=== PATIENT | female | born 1995 | race Caucasian/White ===

== ENCOUNTER 2016-07-12 18:51 | Inpatient (IN) ==
[2016-07-12] MEDS ORDERED: Famotidine 20 MG/2 ML VIAL IVP PRN (19:43)
[2016-07-12] MEDS ORDERED: Naloxone 0.4 MG/ML INJ IVP PRN (19:43)
[2016-07-12] MEDS ORDERED: *HR* FentaNYL (PF) 100 MCG/2 ML VIAL IVP PRN (19:43)
[2016-07-12] MEDS ORDERED: *HR* Nalbuphine 20 MG/ML AMPUL IVP PRN (19:48)
--- NOTE | 2016-07-12 19:56 | OB/GYN History & Physical ---
Date of Encounter: 07/12/16 Time of Encounter: 19:49 Assessment and Plan (1) 40 weeks gestation of Current visit: Yes Status: Acute (2) Rupture of membranes Current visit: Yes Status: Acute Term SROM confirmed with nitrizine (PROM), FHT 145/+accels/-decels/Cat 1 [place]: CTX q2-4 moderate palp Admit for labor standard labor orders Clear liquids as desired, May have epidural and IV pain medication at pt. request GBS negative. History of Present Illness Chief complaint: Leaking fluid since 1430 HPI: Ms. Tsang is a 20 year old female 40+0 presents with leaking of fluid and cramping. Pt states she began leaking fluid about 1430 today. Clear without odor. Has had some slight cramping over the last couple hours. uncomplicated course with the exception of anxiety which she was taking zoloft, but discontinued earlier in . Pt denies feeling anxiety at this time, but is concerned about PP depression. Labs: A+, rubella immune, GBS negative, All serologies negative. Past Med Surg Social Fam HX - Past Medical History Source: patient Psychiatric history: anxiety, depression Obstetrical History - Pregnancies : 1 Para: 0 Term: 0 : 0 Ab's: 0 Livin Medications and Allergies Allergies No Known Allergies Allergy (Verified 07/12/16 19:49) Review of System OB All systems PM: reviewed and no additional remarkable complaints except as stated Exam - Constitutional Constitutional: well developed, well nourished, no acute distress - Neck Neck exam: full ROM - Lungs Respiratory exam: CTAB - Cardiovascular Cardiovascular exam: RRR, +S1, +S2 - Breasts Breast: bilateral: normal - Abdomen Abdomen: Present: bowel sounds normal, gravid, non tender - Extremities Extremities exam: normal inspection - Cervix Dilation: 3 (per RN) Station: 0 - Uterus Uterus exam: Present: normal size, normal contour Results All other labs normal. - VTE Reasons for not Prescribing Prophylaxis: Treatment not Indicated - Low risk for VTE
[2016-07-12 20:32] LABS: Basophils % 0.3 %; Eosinophils % 0.4 %; Hematocrit 36.6 % (35.3-44.9); Hemoglobin 12.5 g/dL (11.5-15.4); Immature Granulocytes % 0.4 % (0-4); Immature Platelets 18.5 % (1.1-6.1); Lymphocytes # 1.5 K/mcL (0.6-4.6); Mean Corpuscular HGB Conc 34.2 g/dL (31.6-35.5); Mean Corpuscular Hemoglobin 34.2 pg (28.0-33.3); Monocytes # 0.6 K/mcL (0.0-1.3); Monocytes % 5.7 %; Platelet Count 159 K/mcL (140-400); Red Blood Count 3.66 M/mcL (3.82-4.97); Red Cell Distribution Width 12.4 % (11.5-14.5); Segmented Neutrophils % 80.2 %
[2016-07-12] MEDS ORDERED: Ringers Solution, Lactated 1,000 ML IVC SCH (22:15)
[2016-07-12] MEDS ORDERED: Ringers Solution, Lactated 500 ML IVC ONE (22:17)
[2016-07-12] MEDS ORDERED: EPHEDrine 50 MG/ML VIAL IVP PRN (22:17)
[2016-07-12] MEDS ORDERED: *HR* FentaNYL (PF) 100 MCG/2 ML VIAL EP ONE (22:17)
[2016-07-12] MEDS ORDERED: *HR* Ropivacaine/PF 0.2% 10 ML AMPUL EP ONE (22:17)
--- NOTE | 2016-07-12 22:21 | Anesthesia Evaluation PreOp ---
Date of Encounter: 07/12/16 Time of Encounter: 20:20 - Past History Planned Operation: Labor Epidural Cardiac History: Denies any Significant Hx Pulmonary History: Denies Any Significant HX, Former smoker COMPLIANCE LEAD History: Denies Any Significant HX Other Medical History: Denies Any Significant HX Anesthesia History: No Prior Anesthetic Complications : Yes Alcohol Use: none Drug use: none Medications and Allergies Formula Tablet 1 tab PO DAILY 07/12/16 [History] Allergies No Known Allergies Allergy (Verified 07/12/16 19:49) - Meds/Allergy Pre-op Review Medications Reviewed: Yes Allergies Reviewed: Yes Beta Blockers on Current Med List: No Anesthesia Results - Labs 07/12/16 20:25 Anesthesia Exam Last Vital Signs Temp 98.1 F 07/12/16 19:51 Pulse 88 07/12/16 19:51 Resp 16 07/12/16 19:51 BP 129/73 07/12/16 19:51 Height: 1.73m Weight: 82.5kg NPO (# of Hours): >4hr solids Pain Scale: 5 Pain Scale Used: Numeric (1 - 10) - HEENT Pupil (Motor): Pupils equal Mallampati: II Teeth: Normal Oral Opening: Greater than 3 - COMPLIANCE LEAD LOC: Oriented COMPLIANCE LEAD Motor: Normal RUE, Normal LUE, Normal RLE, Normal LLE, Normal Face COMPLIANCE LEAD Sensory: Normal: RUE, LUE, RLE, LLE, Face - Cardiac Rhythm: Regular Murmur: None JVD: No Carotid Bruit: No - Pulmonary Breath Sounds: bilateral Clear Respiratory Effort: Symmetrical Anesthesia Assess/Plan ASA Score: 2 Modified [place] Scale for Level of Consciousness: Cooperative, oriented, and tranquil Anesthetic Plan: Regional Autologous Blood: Yes Monitoring Plan: Standard Monitors Recovery Plan: Other
[2016-07-12] MEDS ORDERED: *HR* FentaNYL (PF) 100 MCG/2 ML VIAL ONE (22:23)
[2016-07-12] MEDS ORDERED: *HR* Ropivacaine/PF 0.2% 10 ML AMPUL ONE (22:23)
[2016-07-12] MEDS ORDERED: Epidural Premix (fent/bupiv) 110 ML EP ONE (22:23)
[2016-07-12] MEDS ORDERED: Epidural Premix (fent/bupiv) 110 ML EP SCH (22:30)
[2016-07-13] MEDS ORDERED: Oxytocin 20 units/ LR 1000 mL 20 UNIT/1,000 ML BAG IVC ONE ×3 (03:43→08:10)
[2016-07-13] MEDS ORDERED: Lidocaine 1% 20 ML MDV ONE (05:05)
--- NOTE | 2016-07-13 05:46 | OB/GYN Procedure Note ---
Delivery - Delivery Date: 07/13/16 Provider: Margo Lizarraga (Naima for repair) Intrapartum events: none Delivery induction: none Delivery monitor: external FHT, external uterine Anesthesia: local, epidural Estimated Blood Loss: 400 - Repair Episiotomy: none Laceration Description: Periurethral, Perineal - 2nd Degree, Vaginal - Complications Delivery complications: none Delivery comments: Pt complete and after laboring down began directed bearing down efforts to of liveborn girl. Vertex presented KELSY and shoulders easily followed. Infant placed on maternal abdomen for tactile stimulation to cry. AGARS 8/. Placenta delivered spontaneously (raúl) 24 minutes after delivery. Fundus massaged until firm with pitocin per policy. Perineum with second degree lacerations including right labial and yesenia uretheral repaired under local. Dr Mcnamara called for assist with repair. After repair and packing removal bleeding noted. Manual inspection by Dr. Mcnamara for clots and membranes removal. EBL 400. Mother and infant recovering in stable condition. - Disposition Mom disposition: stable in LDR Electra disposition: stable in LDR
[2016-07-13] MEDS ORDERED: Benzocaine/Menthol 56 GM AEROSOL SPRAY TP PRN (08:10)
[2016-07-13] MEDS ORDERED: Oxytocin 20 units/ LR 1000 mL 20 UNIT/1,000 ML BAG IV SCH (08:10)
[2016-07-13] MEDS ORDERED: Lanolin 7 G OINT...G. TP PRN (08:10)
[2016-07-13] MEDS ORDERED: Acetaminophen 325 MG TABLET PO PRN (08:10)
[2016-07-13] MEDS ORDERED: *HR* HYDROcodone/Acet 5/325 mg TABLET PO PRN (08:10)
[2016-07-13] MEDS: Ibuprofen 600 MG TABLET PO PRN ×2 (09:59→20:33)
[2016-07-13] MEDS: Prenatal Vit/FA 1 EACH TABLET PO SCH (09:59)
[2016-07-14] MEDS: Prenatal Vit/FA 1 EACH TABLET PO SCH (08:26)
[2016-07-14] MEDS: Ibuprofen 600 MG TABLET PO PRN (08:26)
[2016-07-14 09:48] VITALS: BP 113/70
--- NOTE | 2016-07-14 10:04 | Discharge Summary ---
Date of Encounter: 07/14/16 Time of Encounter: 10:01 - Discharge Diagnosis (1) 40 weeks gestation of Priority: Secondary Status: Acute (2) Rupture of membranes Priority: Secondary Status: Acute (3) Vaginal delivery Priority: Primary Status: Acute Comments: Pt states feels well, just sore. +BM, desires discharge home - Discharge Medications Prescriptions: Ibuprofen [Motrin] 600 mg PO Q6HR PRN #60 tablet PRN Reason: Cramping Docusate [Colace] 100 mg PO BID #60 capsule Home Medications: Formula Tablet 1 tab PO DAILY 07/12/16 [History] Acetaminophen [Tylenol] 650 mg PO Q6HR PRN #0 tablet 07/14/16 [Rx] Benzocaine/Menthol [place] [Dermoplast [place]] 1 appl TP QID PRN #0 aerosol [Rx] Breast Pump [BREAST PUMP] 1 each .ROUTE AD #1 each 07/14/16 [Rx] Docusate [Colace] 100 mg PO BID #60 capsule 07/14/16 [Rx] Ibuprofen [Motrin] 600 mg PO Q6HR PRN #60 tablet 07/14/16 [Rx] Lanolin [Lansinoh] 1 appl TP Q4HR PRN #0 oint...g. 07/14/16 [Rx] Allergies/Adverse Reactions: Allergies No Known Allergies Allergy (Verified 07/12/16 19:49) Data Procedures and tests throughout hospitalization: Laboratory Tests 07/12/16 20:25 WBC 11.2 H RBC 3.66 L Hgb 12.5 Hct 36.6 MCV 100.0 MCH 34.2 H MCHC 34.2 RDW 12.4 Plt Count 159 MPV 13.0 H Immature Gran % 0.4 Seg Neutrophils % 80.2 Lymphocytes % 13.0 Monocytes % 5.7 Eosinophils % 0.4 Basophils % 0.3 Neutrophils # 9.0 H Lymphocytes # 1.5 Monocytes # 0.6 Eosinophils # 0.0 Basophils # 0.0 Immature Plt Fraction 18.5 H Date of admission: 07/12/16 18:51 Primary care physician: PCP NO Consults: 07/13/16 08:10 Consult to Integration Consultant [CONS] Routine Comment: Vaginal delivery, consult needed 07/13/16 13:18 Consult to Transportation Officer (W&C) [CONS] Routine Reason For Exam: Reason for SW Consult: first time mom Discharging clinician: Margo Lizarraga Anticipated date of discharge: 07/14/16 - Patient Status Disposition: Home, Self-Care Condition: Good Functional capacity at discharge: independent ambulation Overall status at discharge: patient is back to baseline - Discharge Instructions Follow Up With: Margo Lizarraga, CNM [Advanced Practice Nurse] - (August 13, 2016 @ 11:45 am) - Diet and Activity Activity: resume usual activities as tolerated Diet: regular diet Hospital Course Reason for admission: active labor Delivery: Episiotomy: none Laceration: 2nd degree Other procedures: none complications: phlebitis Discharge diagnosis: IUP at term delivered baby: female Hospital course: Delivery - Delivery Date: 07/13/16 Provider: Margo Lizarraga (Naima for repair) Intrapartum events: none Delivery induction: none Delivery monitor: external FHT, external uterine Anesthesia: local, epidural Estimated Blood Loss: 400 - Repair Episiotomy: none Laceration Description: Periurethral, Perineal - 2nd Degree, Vaginal - Complications Delivery complications: none Delivery comments: Pt complete and after laboring down began directed bearing down efforts to of liveborn girl. Vertex presented KELSY and shoulders easily followed. Infant placed on maternal abdomen for tactile stimulation to cry. AGARS 8/9. Placenta delivered spontaneously ([place]) 24 minutes after delivery. Fundus massaged until firm with pitocin per policy. Perineum with second degree lacerations including right labial and yesenia uretheral repaired under local. Dr Mcnaamra called for assist with repair. After repair and packing removal bleeding noted. Manual inspection by Dr. Mcnamara for clots and membranes removal. EBL 400. Mother and infant recovering in stable condition. - Disposition Mom disposition: stable in and appropriate for discharge Time Attestation: Total time spent providing and/or coordinating discharge services: Time Spent: Less than 30 minutes Exam - Constitutional Vitals: Temp Pulse Resp BP Pulse Ox 98.4 F 91 16 113/70 99 07/14/16 09:46 07/14/16 09:46 07/14/16 09:46 07/14/16 09:46 07/13/16 21:20 General appearance IM: A&O X 3, no acute distress - Respiratory Respiratory exam: Present: CTAB - Cardiovascular Cardiovascular exam IM: Present: RRR, +S1, +S2 - GI/Abdominal GI/Abdominal exam IM: normal bowel sounds, soft - Uterine Tone: Firm - Extremities Exam Extremities exam IM: Present: normal capillary refill, normal inspection - Neurological Exam Neurological exam: normal gait, oriented X3 - Psychiatric Additional comments: reports good mood concerned about . Will refer to .
== END 2016-07-14 17:00 | disposition home or self-care (01) | DRG 775 ==
LOC: 1NENULAB → OBSVTOIN 18:51 → 1NENULAB 22:07 → 1NENUOBS 07-13 08:09
PROVIDERS: ADMIT Obstetrics & Gynecology; ATTEND Obstetrics & Gynecology

== ENCOUNTER 2016-07-24 21:23 | Observation (INO) ==
[2016-07-24] MEDS ORDERED: Lidocaine 1% 20 ML MDV ONE (22:57)
[2016-07-24] MEDS ORDERED: Ondansetron 4 MG/2 ML VIAL IVP PRN (23:03)
[2016-07-24] MEDS ORDERED: Naloxone 0.4 MG/ML INJ IVP PRN (23:03)
[2016-07-24] MEDS ORDERED: SODIUM CHLORIDE 0.9% IVPB ONE (23:06)
[2016-07-24] MEDS ORDERED: GENTAMICIN IVPB ONE (23:06)
[2016-07-24] MEDS ORDERED: *HR* HYDROcodone/Acet 5/325 mg TABLET PO PRN (23:07)
[2016-07-24] MEDS ORDERED: MetroNIDAZOLE 500 MG/100 ML 500 MG/100 ML BAG IVPB ONE (23:08)
[2016-07-24] MEDS ORDERED: Ringers Solution, Lactated 1,000 ML IVC SCH (23:15)
--- NOTE | 2016-07-25 00:15 | OB/GYN History & Physical ---
Date of Encounter: 07/25/16 Time of Encounter: 23:30 Assessment and Plan (1) Wound dehiscence in puerperium, perineal Current visit: Yes Status: Acute Cultures collected prior to repair (2) Breast feeding status of mother Current visit: Yes Status: Acute support prn (3) Infection of perineal wound following delivery Current visit: Yes Status: Acute Patient was given IV ancef prior to arrival at [place] Patient was given Flagy IV piggyback after wound cultures were collected. History of Present Illness Chief complaint: vaginal infection with dehiscence of vaginal repair HPI: Ms. Tsang is a 20 year old female that is 11 days presents to unit from [facility]. [facility] had completed lab work WBC was 7.9, Hgb 12, Vital signs were stable and patient was afebrile. Patient was given 1 gram of Ancef and 30mg of Toradol for pain. Patient reports low grade fevers for past 5 days. Patient states she was taking motrin but the pain in her vagina got worse today and she noticed a foul odor with discharge. Patient is breast feeding female infant. Denies any urinary symptoms or flu symptoms. Wound cultures were collected. Patient had an IV in her right AC. Lactated ringer were started at 125cc/hour and Flagyl 500mg was given IV piggyback. Patient was given PO [place] for pain management. Past Med Surg Social Fam HX - Past Medical History Source: patient Medical history: no medical history Psychiatric history: anxiety, depression - Past Surgical History Surgical History: no surgical history - Social History Smoking Status: Former smoker Smokeless Tobacco Status: No Alcohol use: none Drug use: none Occupational status: employed Current living situation: Home - Independent Activity Level: Independent ambulation Recent Out of Country Travel Within the Last 8 Weeks: No Exposure or Possible Exposure to Illness During Travel: No - Family History Father Living Status: Still Living Hx Family Cardiac Disorders: No Hx Family Respiratory Disorders: No Hx Family Cancer: No Hx Family GI Disorders: No Hx Family Endocrine Disorder: No Hx Family Neuromuscular Disorders: No Hx Family Neurologic Disorders: No Hx Family HEENT Disorders: No Hx Family Autoimmune Disorders: No Obstetrical History - Pregnancies : 1 Para: 1 Term: 1 : 0 Ab's: 0 Livin Medications and Allergies Formula Tablet 1 tab PO DAILY 07/12/16 [History] Acetaminophen [Tylenol] 650 mg PO Q6HR PRN #0 tablet 07/14/16 [Rx] Benzocaine/Menthol [place] [Dermoplast [place]] 1 appl TP QID PRN #0 aerosol [Rx] Breast Pump [BREAST PUMP] 1 each .ROUTE AD #1 each 07/14/16 [Rx] Docusate [Colace] 100 mg PO BID #60 capsule 07/14/16 [Rx] Ibuprofen [Motrin] 600 mg PO Q6HR PRN #60 tablet 07/14/16 [Rx] Lanolin [Lansinoh] 1 appl TP Q4HR PRN #0 oint...g. 07/14/16 [Rx] Allergies No Known Allergies Allergy (Verified 07/12/16 19:49) Review of System OB - Constitutional Constitutional ROS IM: fever(s) (reports fevers of 100.0), no chills, no fatigue , no headache(s) - Breasts Breasts: other (Patient is breast feeding), no pain - Cardiovascular Cardiovascular: no chest pain, no dyspnea, no edema, no palpitations, no pedal edema, no syncope - Respiratory Respiratory: no cough, no dyspnea - Gastrointestinal Gastrointestinal: no abdominal pain, no constipation, no cramping, no diarrhea, no heartburn, no vomiting - Genitourinary Genitourinary: vaginal discharge, vaginal odor, no abnormal vaginal bleeding, no difficulty urinating, no dysuria, no flank pain, no urinary frequency, no vaginal pruritis Exam - Constitutional Constitutional: well developed, well nourished, average body habitus - HEENT HEENT: Normocephaly, Mucus Membranes Moist - Neck Neck exam: supple - Lungs Respiratory exam: CTAB - Cardiovascular Cardiovascular exam: RRR, +S1, +S2 - Abdomen Abdomen: Present: bowel sounds normal, non tender - Extremities Extremities exam: full ROM, normal capillary refill, normal inspection Deep Tendon Reflex Grade: 2+ Normal - Vagina Vagina: Present: discharge (purulent) - Comments Comments: When examining the perineum and vaginal lacerations, suture appears to be loose and handing out of the vagina. The perineum was prepped with betadine and old suture was removed. 1% lidocaine was used to anesthetize for repair. A right periurethral laceration was repaired with 4-0 vicryl. A second degree vaginal laceration was repaired with 3-0 vicryl. Patient tolerated well. Pericare was provided and an ice pack was placed on perineum. Results All other labs normal. - VTE Reasons for not Prescribing Prophylaxis: Treatment not Indicated - Low risk for VTE
[2016-07-25] MEDS ORDERED: Benzocaine/Menthol 56 GM AEROSOL SPRAY TP PRN ×2 (00:38→01:38)
[2016-07-25] MEDS ORDERED: *HR* HYDROmorphone (PF) 1 MG/ML SYRINGE IVP ONE (00:50)
[2016-07-25] MEDS ORDERED: Ibuprofen 600 MG TABLET PO PRN (01:38)
[2016-07-25] MEDS ORDERED: Naloxone 0.4 MG/ML INJ IVP PRN (01:38)
[2016-07-25] MEDS ORDERED: Ringers Solution, Lactated 1,000 ML IVC SCH (01:38)
[2016-07-25] MEDS ORDERED: *HR* HYDROcodone/Acet 5/325 mg TABLET PO PRN (01:38)
[2016-07-25] MEDS ORDERED: Ondansetron 4 MG/2 ML VIAL IVP PRN (01:38)
[2016-07-25 02:02] VITALS: BP 101/67
[2016-07-25] MEDS ORDERED: ceFAZolin 1,000 MG in D5% in Water (Mini-Bag+) 100 ML IVPB SCH ×2 (03:00)
--- NOTE | 2016-07-25 06:05 | Discharge Summary ---
Date of Encounter: 07/25/16 Time of Encounter: 06:04 - Discharge Diagnosis (1) Wound dehiscence in puerperium, perineal Priority: Primary Status: Acute Comments: Continue perineal care Sitz bath prn follow up in 1 week (2) Breast feeding status of mother Priority: Secondary Status: Acute (3) Infection of perineal wound following delivery Priority: Secondary Status: Acute Comments: PO Keflex and PO Flagyl [place] and Ibupforen for pain - Discharge Medications Prescriptions: HYDROcodone/Acet 5/325 mg [[place] 5-325 mg] 1 tab PO Q6HR PRN #10 tablet PRN Reason: Pain Cephalexin [Keflex] 500 mg PO QID #40 capsule MetroNIDAZOLE [Flagyl] 500 mg PO BID #14 tablet Home Medications: Formula Tablet 1 tab PO DAILY 07/12/16 [History] Benzocaine/Menthol [place] [Dermoplast [place]] 1 appl TP QID PRN #0 aerosol [Rx] Breast Pump [BREAST PUMP] 1 each .ROUTE AD #1 each 07/14/16 [Rx] Docusate [Colace] 100 mg PO BID #60 capsule 07/14/16 [Rx] Ibuprofen [Motrin] 600 mg PO Q6HR PRN #60 tablet 07/14/16 [Rx] Lanolin [Lansinoh] 1 appl TP Q4HR PRN #0 oint...g. 07/14/16 [Rx] Benzocaine/Menthol [place] [Dermoplast [place]] 1 appl TP QID PRN #0 aerosol [Rx] Cephalexin [Keflex] 500 mg PO QID #40 capsule 07/25/16 [Rx] HYDROcodone/Acet 5/325 mg [[place] 5-325 mg] 1 tab PO Q6HR PRN #10 tablet [Rx] Ibuprofen [Motrin] 600 mg PO Q6HR PRN #0 tablet 07/25/16 [Rx] MetroNIDAZOLE [Flagyl] 500 mg PO BID #14 tablet 07/25/16 [Rx] Allergies/Adverse Reactions: Allergies No Known Allergies Allergy (Verified 07/12/16 19:49) Date of admission: 07/24/16 23:03 Discharging clinician: Skylar Julien Anticipated date of discharge: 07/25/16 - Patient Status Disposition: Home, Self-Care Condition: Good Functional capacity at discharge: independent ambulation - Discharge Instructions Follow Up With: Skylar Julien CNM [Non-Partnered Physician] - - Diet and Activity Activity: increase activity as tolerated Diet: regular diet Hospital Course NETWORK DESIGNER Hospital course: Called to patient's room. Patient asking to be discharged. is spitting up blood and patient needs to take to ER. Patient reports pain is better. Denies and fever or chills. Vital signs are stable, perineum is intact. Patient to follow up in office in 1 week. Patient given education on pericare including sitz bath, signs and symptoms to report and medication. Patient denies any questions or concerns. Time Attestation: Total time spent providing and/or coordinating discharge services: Time Spent: Less than 30 minutes Exam - Constitutional Vitals: Temp Pulse Resp BP Pulse Ox 97.9 F 64 14 101/67 97 07/25/16 01:45 07/25/16 01:45 07/25/16 01:45 07/25/16 01:45 07/25/16 01:45 General appearance IM: A&O X 3, pleasant, answers questions appropriately - Respiratory Respiratory exam: Present: CTAB - Cardiovascular Cardiovascular exam IM: Present: rubs, +S1, +S2 - GI/Abdominal GI/Abdominal exam IM: normal bowel sounds - Extremities Exam Extremities exam IM: Present: full ROM, normal capillary refill, normal inspection - Neurological Exam Neurological exam: alert, oriented X3, reflexes normal - VTE Reasons for not Prescribing Prophylaxis: Treatment not Indicated - Low risk for VTE
[2016-07-25] MEDS ORDERED: MetroNIDAZOLE 500 MG/100 ML 500 MG/100 ML BAG IVPB SCH ×2 (08:00)
== END 2016-07-25 06:20 | disposition home or self-care (01) ==
LOC: 1NENULAB → 1NENUOBS 07-25 01:36
PROVIDERS: ADMIT Advanced Practice Midwife; ATTEND Advanced Practice Midwife